=== PATIENT | male | born 1995 | race Caucasian/White ===

== ENCOUNTER 2018-08-27 14:58 | Emergency (ER) | payer OTHER ==
[~2018-08-27] VITALS: Ht 190.5 cm; Wt 74.8 kg
[~2018-08-27 14:58] MED LIST: ACYCLOVIR 200200 MG PO; ALAVERT10 MG PO; ALBUTEROL INHAL17 GM INH; BACTRIM DS TAB1 EACH PO; CLARITIN10 MG; DOXYCYCLINE 10100 MG PO; HYDROCHLOROTH12.5 MG PO; HYDROCHLOROTHIA25 M1 PO; NORCO 5-325 TA1 EACH PO; PROTONIX40 MG PO; ROBITUSSIN DM118 ML PO; ULTRAM 50MG TAB50 MG PO; VENTOLIN HFA 1818 GM INH
[2018-08-27 15:50] VITALS: BP 143/79
[2018-08-27] MEDS ORDERED: AMOXICILLIN 50500 MG PO (15:50)
== END 2018-08-27 15:50 | disposition home or self-care (01) ==
LOC: ER 14:58
DX: R05 Cough (principal); R50.9 Fever, unspecified; R09.81 Nasal congestion; J45.909 Unspecified asthma, uncomplicated; I10 Essential (primary) hypertension; F17.210 Nicotine dependence, cigarettes, uncomplicated

== ENCOUNTER 2020-10-20 17:02 | Emergency (ER) | payer OTHER ==
[~2020-10-20] VITALS: Ht 190.5 cm; Wt 68.0 kg
[~2020-10-20 17:02] MED LIST changes: +AMOXICILLIN 50500 MG PO
[2020-10-20 17:05] VITALS: BP 156/91
[2020-10-20] MEDS ORDERED: CEPACOL SORE T1 EAC8 PO (17:46)
[2020-10-20] MEDS ORDERED: AUGMENTIN 875-1 EACH PO (17:46)
[2020-10-20] MEDS ORDERED: CORTISPORIN OTI10 M2 OTIC (17:46)
== END 2020-10-20 18:05 | disposition home or self-care (01) ==
LOC: ER 17:02
DX: H66.91 Otitis media, unspecified, right ear (principal); H60.91 Unspecified otitis externa, right ear; J02.8 Acute pharyngitis due to other specified organisms; J45.909 Unspecified asthma, uncomplicated; I10 Essential (primary) hypertension; F17.210 Nicotine dependence, cigarettes, uncomplicated; Z79.2 Long term (current) use of antibiotics; Z20.822 Contact with and (suspected) exposure to COVID-19; Z72.89 Other problems related to lifestyle